=== PATIENT | female | born 1970 | race American Indian/Alaskan Native ===

== ENCOUNTER 2017-02-10 11:18 | Outpatient (CLI) | payer OTHER ==
--- NOTE | 2017-02-11 08:47 | Magnetic Resonance Report ---
MR LOWER EXTREMITY JOINT RIGHT WITHOUT CONTRAST HISTORY: Right knee pain. TECHNIQUE: Multisequence, multiplanar MRI without IV gadolinium through the right knee. COMPARISON: None at this facility. FINDINGS: An oblique tear is identified in the posterior body/horn of the medial meniscus which extends to both the femoral and tibial articular surfaces. No associated para meniscal cyst. The lateral meniscus is within normal limits. The ACL, PCL, MCL, LCL complex and extensor complex are intact. No ligamentous injury is appreciated. The periarticular musculature is within normal limits. Intra-articular cartilage is intact. No significant thinning or osteochondral defect. Minor medial compartment joint space narrowing and retropatellar spurring are noted consistent with early osteoarthritic changes. The bone marrow signal is within normal limits. No evidence for fracture or bone marrow edema. No bone lesion. Trace joint effusion extends to the suprapatellar bursa. No popliteal cyst is appreciated. IMPRESSION: Medial meniscal tear as outlined above. Early osteoarthritic changes. Trace joint effusion.
== END 2017-02-10 11:19 | disposition home or self-care (01) ==
LOC: MRI 11:18
PROVIDERS: ATTEND Orthopaedic Surgery Orthopaedic Trauma
DX: S83.241A Other tear of medial meniscus, current injury, right knee, initial encounter (principal); M17.11 Unilateral primary osteoarthritis, right knee; X58.XXXA Exposure to other specified factors, initial encounter; Y93.89 Activity, other specified; Y92.89 Other specified places as the place of occurrence of the external cause; Y99.8 Other external cause status
CPT/HCPCS: 73721